=== PATIENT | female | born 2000 | race American Indian/Alaskan Native ===

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

== ENCOUNTER 2018-01-06 19:54 | Outpatient (CLI) | payer OTHER ==
[2018-01-06 23:43] VITALS: BP 122/83
== END 2018-01-06 23:12 | disposition home or self-care (01) ==
LOC: TRG 19:54
PROVIDERS: ATTEND Obstetrics & Gynecology
DX: O62.8 Other abnormalities of forces of labor (principal); Z3A.40 40 weeks gestation of pregnancy
CPT/HCPCS: 59025

== ENCOUNTER 2018-01-09 06:34 | Inpatient (IN) | payer OTHER ==
[2018-01-09] MEDS ORDERED: LACTATED RINGERS 1,000 ML ONE (07:13)
[2018-01-09 07:59] LABS: Hematocrit 33.1 % (30.3-42.9); Hemoglobin 10.6 gm/dl (10.1-14.3); Mean Corpuscular HGB Conc 32 % (30-34); Mean Corpuscular Volume 77 fl (79-97); Platelet Count 216 K/mm3 (140-440); Red Blood Count 4.32 M/mm3 (3.65-5.03); Red Cell Distribution Width 14.1 % (13.2-15.2)
[2018-01-09] MEDS ORDERED: XYLOCAINE 2% INFILTRATI NR (08:00)
[2018-01-09] MEDS ORDERED: LACTATED RINGERS 1,000 ML IV SCH (08:00)
[2018-01-09] MEDS: LACTATED RINGERS 1,000 ML IV SCH ×2 (08:00→09:19)
[2018-01-09] MEDS ORDERED: LACTATED RINGERS 1,000 ML IV ONE (08:00)
[2018-01-09] MEDS ORDERED: BRETHINE IVP PRN (08:00)
[2018-01-09] MEDS ORDERED: PITOCin/NS 20 UNIT/1000ML DRIP 20 UNITS/1,000 ML BAG IV SCH (08:00)
[2018-01-09] MEDS ORDERED: PITOCin/NS 30 UNIT/500ML 30 UNITS/500 ML BAG IV SCH (08:00)
[2018-01-09] MEDS ORDERED: SUBLIMAZE IV PRN (08:00)
[2018-01-09] MEDS ORDERED: POLYCILLIN/NS 2 GM/100 ML 2 GM/100 ML BAG IV NR (08:00)
[2018-01-09 08:07] LABS: Mean Corpuscular Hemoglobin 25 pg (28-32)
--- NOTE | 2018-01-09 08:24 | Anesthesia Consultation ---
Anesthesia Consult and Med Hx Date of service: 01/09/18 - Airway Anesthetic Teeth Evaluation: Good ROM Head & Neck: Adequate Mental/Hyoid Distance: Adequate Mallampati Class: Class II Intubation Access Assessment: Probably Good - Pre-Operative Health Status ASA Pre-Surgery Classification: ASA2 Proposed Anesthetic Plan: Epidural, Spinal - Pulmonary Hx Asthma: No COPD: No Hx Pneumonia: No - Cardiovascular System Hx Hypertension: No - Central Nervous System Hx Seizures: No Hx Psychiatric Problems: No - Endocrine Hx Renal Disease: No Hx End Stage Renal Disease: No Hx Hypothyroidism: No Hx Hyperthyroidism: No - Hematic Hx Anemia: No Hx Sickle Cell Disease: No - Other Systems Hx Alcohol Use: No
[2018-01-09] MEDS ORDERED: MINERAL OIL PO PRN (08:30)
[2018-01-09] MEDS ORDERED: BRETHINE SUB-Q PRN (08:30)
[2018-01-09] MEDS ORDERED: fentaNYL-BUPIV 2 MCG/ML-0.125% 200 MCG/100 ML BAG EPIDURAL SCH (09:00)
[2018-01-09] MEDS ORDERED: NARCAN 2 MG/2 ML IV PRN (09:00)
[2018-01-09] MEDS ORDERED: ZOFRAN IV PRN ×2 (10:25→13:47)
--- NOTE | 2018-01-09 11:05 | History and Physical Report ---
History of Present Illness Date of examination: 01/09/18 Date of admission: 01/09/18 08:08 Chief complaint: contractions History of present illness: Pt is a 17 year old -[place] female MIKE 01/02/18 at 41w0d who presents with regular contractions. She was found to be 4 cm dilated. She denies vaginal bleeding or leakage of fluid. She has had care at [facility] since 14 wks that has been uncomplicated. She is GBS positive. Past History Past Medical History: no pertinent history Past Surgical History: no surgical history Social history: no significant social history - Obstetrical History Expected Date of Delivery: 01/02/18 Actual Gestation: 41 Week(s) 0 Day(s) : 2 Para: 0 Medications and Allergies Allergies Allergy/AdvReac Type Severity Reaction Status Date / Time No Known Allergies Allergy Unverified 09/09/17 13:31 Home Medications Medication Instructions Recorded Confirmed Last Taken Type Ferrous Sulfate [Feosol 325 MG tab] 1 tab PO BID 01/09/18 01/09/18 1 Month Ago History ~12/09/17 Pnv,Calcium 72/Iron/Folic Acid 1 tab PO QDAY 01/09/18 01/09/18 1 Month Ago History [Pnv Plus Multivit Tab] ~12/09/17 Active Meds: Active Medications Ephedrine Sulfate (Ephedrine Sulfate) 10 mg IV Q2M PRN PRN Reason: Hypotension Fentanyl (Sublimaze) 100 mcg IV Q2H PRN PRN Reason: Labor Pain Ampicillin Sodium (Ampicillin/Ns 1 Gm/50 Ml) 1 gm in 50 mls @ 100 mls/hr IV Q4H [facility]; Protocol Lactated Ringer's (Lactated Ringers) 1,000 mls @ 125 mls/hr IV DIRECT [facility]ENCE Last Admin: 01/09/18 09:19 Dose: 125 mls/hr Oxytocin/Sodium Chloride (Pitocin/Ns 20 Unit/1000ml Drip) 20 units in 1,000 mls @ 125 mls/hr IV DIRECT [facility] Oxytocin/Sodium Chloride (Pitocin/Ns 30 Unit/500ml) 30 units in 500 mls @ 4 mls /hr IV TITR [facility]ENCE; Protocol Last Titration: 01/09/18 10:15 Dose: 8 ml/hr, 8 mls/hr Fentanyl/Bupivacaine/Sodium Chlor (Fentanyl-Bupiv 2 Mcg/Ml-0.125%) 200 mcg in 100 mls @ 12 mls/hr EPIDURAL TITR [facility]ENCE; Protocol Last Admin: 01/09/18 09:23 Dose: 12 mls/hr Lidocaine (Xylocaine 2%) 20 ml INFILTRATI ONCE NR Stop: 01/10/18 07:59 Mineral Oil (Mineral Oil) 30 ml PO QHS PRN PRN Reason: Constipation Naloxone HCl (Narcan 2 Mg/2 Ml) 0.2 mg IV Q5M PRN PRN Reason: Respiratory sedation Ondansetron HCl (Zofran) 4 mg IV Q8H PRN PRN Reason: Nausea And Vomiting Terbutaline Sulfate (Brethine) 0.25 mg SUB-Q ONCE PRN PRN Reason: Hyperstimulation/Hypertonicity Terbutaline Sulfate (Brethine) 0.25 mg IVP ONCE PRN PRN Reason: Hyperstimulation/Hypertonicity Review of Systems All systems: negative - Vital Signs Vital signs: Vital Signs Pulse Pulse Ox 90 100 01/09/18 06:54 01/09/18 06:54 Temp Pulse Resp BP Pulse Ox 98.2 F 93 H 18 106/59 99 01/09/18 08:01 01/09/18 11:05 01/09/18 08:01 01/09/18 10:59 01/09/18 11:05 - Physical Exam Breasts: Positive: deferred Cardiovascular: Regular rate Lungs: Positive: Clear to auscultation Abdomen: Positive: soft (gravid ) Uterus: Positive: enlarged (gravid ) Extremities: Positive: normal - Obstetrical FHR: category 2 Uterine Contraction Monitor Mode: External Cervical Dilatation: 9 Cervical Effacement Percentage: 100 station: -1 Uterine Contraction Pattern: Regular Uterine Tone Measurement Phase: Resting Uterine Contraction Intensity: Moderate Results Result Diagrams: 01/09/18 07:23 Abnormal lab results 01/09/18 Range/Units 07:23 WBC 14.8 H (4.5-11.0) K/mm3 MCV 77 L (79-97) fl MCH 25 L (28-32) pg All other labs normal. Assessment and Plan A: IUP at 41w0d Active labor GBS positive P: Admit to labor and delivery GBS prophylaxis AROM- Thick meconium Routine intrapartum care
[2018-01-09] MEDS ORDERED: AMPICILLIN/NS 1 GM/50 ML 1 GM/50 ML BAG IV SCH (13:00)
--- NOTE | 2018-01-09 13:43 | Procedure Note ---
OB Delivery Note - Delivery Date of Delivery: 01/09/18 (7-0 @ 1321) Surgeon: BRIEN LYNCH Estimated blood loss: 200cc - Vaginal Delivery presentation: vertex Delivery position: OA Intrapartum events: none Delivery induction: none Delivery augmentation: rupture of membranes Delivery monitor: external FHT, external uterine Route of delivery: Delivery placenta: spontaneous (1321) Delivery cord: 3 umbilical vessels Episiotomy: none Delivery laceration: none Anesthesia: epidural - A at 1 minute: 8 at 5 minutes: 9 Infant Gender: Male ( viable male. NICU at . To warmer. Spont. cry. Spont placenta. Pitocin infusing. FF 2 below, U, ML. Small lochia. No lacerations.)
[2018-01-09] MEDS ORDERED: PHENERGAN PO PRN (13:47)
[2018-01-09] MEDS ORDERED: DULCOLAX PR PRN (13:47)
[2018-01-09] MEDS ORDERED: TUCKS PAD TP PRN (13:47)
[2018-01-09] MEDS ORDERED: MILK OF MAGNESIA PO PRN (13:47)
[2018-01-09] MEDS ORDERED: NORCO 5/325 PO PRN (13:47)
[2018-01-09] MEDS ORDERED: BENADRYL PO PRN (13:47)
[2018-01-09] MEDS ORDERED: PHENERGAN PR PRN (13:47)
[2018-01-09] MEDS ORDERED: TYLENOL PO PRN (13:47)
[2018-01-09] MEDS ORDERED: LANSINOH TP PRN (13:47)
[2018-01-09] MEDS ORDERED: SODIUM CHLORIDE FLUSH SYRINGE 10 ML IV NR (14:00)
[2018-01-09] MEDS: MOTRIN PO SCH ×2 (14:53→22:00)
[2018-01-10 02:19] LABS: Hematocrit 30.9 % (30.3-42.9); Hemoglobin 9.9 gm/dl (10.1-14.3)
--- NOTE | 2018-01-10 08:55 | Progress Note ---
Assessment and Plan O: VSS AF PP H/H: 9.9/30.9 A: Stable PP Day 1 Anemia P: Iron BID D/C home Subjective - Subjective Date of service: 01/10/18 Patient reports: appetite normal, voiding normally, pain well controlled, ambulating normally : doing well, bottle feeding Objective - Vital Signs Latest vital signs: Vital Signs Temp Pulse Resp BP BP Pulse Ox 01/10/18 00:00 98.7 F 68 18 101/74 01/09/18 20:00 98.7 F 77 18 120/77 01/09/18 15:30 98.7 F 88 128/85 01/09/18 15:10 98.6 F 01/09/18 15:01 63 98 01/09/18 15:00 107 H 123/74 01/09/18 14:56 104 H 98 01/09/18 14:51 100 H 99 01/09/18 14:46 97 H 98 01/09/18 14:45 97 H 145/71 01/09/18 14:41 100 H 97 01/09/18 14:36 98 H 97 01/09/18 14:31 103 H 97 01/09/18 14:26 96 H 98 01/09/18 14:21 100 H 99 01/09/18 14:16 95 H 97 01/09/18 14:15 98 H 159/90 01/09/18 14:11 92 H 99 01/09/18 14:06 94 H 98 01/09/18 14:01 94 H 98 01/09/18 14:00 96 H 156/81 01/09/18 13:56 93 H 98 01/09/18 13:51 98 H 98 01/09/18 13:46 99 H 98 01/09/18 13:45 101 H 154/83 01/09/18 13:41 104 H 97 01/09/18 13:36 102 H 98 01/09/18 13:31 107 H 99 01/09/18 13:30 102 H 131/90 01/09/18 13:26 103 H 96 01/09/18 13:25 98.8 F 01/09/18 13:23 101 H 0 L 01/09/18 13:21 109 H 100 01/09/18 13:16 109 H 100 01/09/18 13:15 176 H 136/93 01/09/18 13:11 105 H 99 01/09/18 13:06 106 H 100 01/09/18 13:01 109 H 100 01/09/18 13:00 96 H 135/73 01/09/18 12:55 100 H 97 01/09/18 12:53 97 H 94 01/09/18 12:50 100 H 99 01/09/18 12:45 104 H 137/79 100 01/09/18 12:40 97 H 99 01/09/18 12:35 100 H 99 01/09/18 12:30 102 H 135/74 99 01/09/18 12:25 93 H 100 01/09/18 12:20 96 H 99 01/09/18 12:15 96 H 125/70 98 01/09/18 12:10 98 H 100 01/09/18 12:05 98 H 100 01/09/18 12:01 101 H 123/67 01/09/18 12:00 95 H 100 01/09/18 11:55 98 H 99 01/09/18 11:50 99 H 97 01/09/18 11:46 99 H 87 01/09/18 11:45 94 H 133/79 97 01/09/18 11:41 106 H 76 L 01/09/18 11:40 106 H 94 01/09/18 11:36 107 H 88 01/09/18 11:35 109 H 92 01/09/18 11:30 105 H 127/71 97 01/09/18 11:25 101 H 98 01/09/18 11:20 109 H 100 01/09/18 11:17 106 H 91 01/09/18 11:15 110 H 99 01/09/18 11:12 107 H 84 01/09/18 11:10 106 H 98 01/09/18 11:05 93 H 99 01/09/18 11:04 101 H 92 01/09/18 10:59 96 H 106/59 100 01/09/18 10:54 93 H 100 01/09/18 10:49 96 H 100 01/09/18 10:45 93 H 109/63 01/09/18 10:44 91 H 100 01/09/18 10:39 96 H 98 01/09/18 10:34 97 H 98 01/09/18 10:29 94 H 109/64 98 01/09/18 10:24 95 H 99 01/09/18 10:19 94 H 98 01/09/18 10:15 95 H 117/67 01/09/18 10:14 89 98 01/09/18 10:09 95 H 99 01/09/18 10:04 95 H 99 01/09/18 10:00 96 H 122/73 86 01/09/18 09:59 67 97 01/09/18 09:52 96 H 97 01/09/18 09:51 89 01/09/18 09:47 99 H 118/64 90 01/09/18 09:44 91 H 82 L 01/09/18 09:42 94 H 100 01/09/18 09:37 95 H 98 01/09/18 09:31 95 H 98 01/09/18 09:30 89 130/79 01/09/18 09:26 88 98 01/09/18 09:21 91 H 99 01/09/18 09:16 89 99 01/09/18 09:14 134/87 01/09/18 09:12 93 H 136/75 01/09/18 09:11 92 H 100 01/09/18 09:10 90 136/74 01/09/18 09:08 91 H 136/70 01/09/18 09:06 93 H 136/78 87 Intake and Output 01/09/18 01/10/18 01/10/18 22:59 06:59 14:59 Intake Total 660 Balance 660 Intake: Oral 240 Intake, Free Water 420 Other: Total, Intake Amount 240 # Voids Void 1 Estimated Blood Loss 200 - Exam Breasts: Present: deferred Abdomen: Present: normal appearance, soft. Absent: distention, tenderness Uterus: Present: normal, firm. Absent: bogginess, tenderness, fundal height below umbilicus Extremities: Present: normal - Labs Labs: Abnormal lab results 01/10/18 Range/Units 01:37 Hgb 9.9 L (10.1-14.3) gm/dl
--- NOTE | 2018-01-10 08:58 | Discharge Summary ---
Providers - Providers Date of Admission: 01/09/18 08:08 Date of discharge: 01/10/18 Attending physician: CLAUDIA YOUNG MD Primary care physician: CLAUDIA YOUNG MD Hospitalization Reason for admission: active labor, IUP at term Delivery: Episiotomy: none Laceration: none Other procedures: none complications: none Discharge diagnosis: IUP at term delivered [place] baby: male Condition at discharge: Good Disposition: DC-01 TO HOME OR SELFCARE Plan - Discharge Medications Prescriptions: Ferrous Sulfate [Feosol 325 MG tab] 1 tab PO BID #60 tablet Ibuprofen [Ibu] 800 mg PO 8XD PRN #30 tablet PRN Reason: pain - Provider Discharge Summary Activity: routine, no sex for 6 weeks, no heavy lifting 4 weeks, no strenuous exercise Diet: routine Instructions: routine Additional instructions: [] Smoking cessation referral if applicable(refer to patient education folder for contact #) [] Refer to [facility] Booklet Call your doctor immediately for: * Fever > 100.5 * Heavy vaginal bleeding ( >1 pad per hour) * Severe persistent headache * Shortness of breath * Reddened, hot, painful area to leg or breast * Drainage or odor from incision. * Keep incision clean and dry at all times and follow doctor's instructions regarding bathing/showering - Follow up plan Follow up: CLAUDIA YOUNG MD [Primary Care Provider] - (RTO 4 weeks . Call office to schedule circumcision)
[2018-01-10] MEDS: MOTRIN PO SCH ×3 (10:10→22:00)
[2018-01-10] MEDS: PRENATAL VITAMIN PO SCH (10:11)
[2018-01-11] MEDS: PRENATAL VITAMIN PO SCH (09:23)
[2018-01-11 16:30] VITALS: BP 124/86
[2018-01-11] MEDS: MOTRIN PO SCH (20:25)
== END 2018-01-11 16:35 | disposition home or self-care (01) | DRG 775 ==
LOC: TRG 06:34 → EEVIPCON 08:08 → LD 08:08 → OB 15:44
PROVIDERS: ADMIT Obstetrics & Gynecology; ATTEND Obstetrics & Gynecology
PROC: 10E0XZZ Delivery of Products of Conception, External Approach (ICD-10-PCS; principal; 2018-01-09)
PROC: 3E0R3BZ Introduction of Anesthetic Agent into Spinal Canal, Percutaneous Approach (ICD-10-PCS; 2018-01-09)
PROC: 00HU33Z Insertion of Infusion Device into Spinal Canal, Percutaneous Approach (ICD-10-PCS; 2018-01-09)
PROC: 10907ZC Drainage of Amniotic Fluid, Therapeutic from Products of Conception, Via Natural or Artificial Opening (ICD-10-PCS; 2018-01-09)
DX: O99.824 Streptococcus B carrier state complicating childbirth (principal); D64.9 Anemia, unspecified; O77.0 Labor and delivery complicated by meconium in amniotic fluid; Z3A.41 41 weeks gestation of pregnancy; Z37.0 Single live birth; Z79.899 Other long term (current) drug therapy; O99.02 Anemia complicating childbirth
CPT/HCPCS: 36415; 85014; 85018; 85027; 86592; 86850; 86900; 86901; 99211; A6250; G0463; J0290; J2405; J2590; J7120

== ENCOUNTER 2020-02-01 22:54 | Emergency (ER) | payer SELFPAY ==
[2020-02-01] MEDS ORDERED: ACETAMINOPHEN 500 MG TAB PO ONE (23:21)
[2020-02-01] MEDS ORDERED: ONDANSETRON 4 MG ODT TAB PO ONE (23:21)
[2020-02-01] MEDS ORDERED: IBUPROFEN 600 MG TAB PO ONE (23:21)
[2020-02-02 00:15] LABS: Basophils # (Auto) 0.1 K/mm3 (0.0-0.1); Basophils % (Auto) 1.3 % (0.0-1.8); Eosinophils % (Auto) 0.3 % (0.0-4.3); Hematocrit 40.1 % (30.3-42.9); Lymphocytes % (Auto) 26.5 % (13.4-35.0); Mean Corpuscular HGB Conc 32 % (30-34); Mean Corpuscular Volume 78 fl (79-97); Platelet Count 293 K/mm3 (140-440); Red Blood Count 5.12 M/mm3 (3.65-5.03); Red Cell Distribution Width 14.5 % (13.2-15.2)
--- NOTE | 2020-02-02 00:16 | Emergency Department Report ---
ED Abdominal Pain HPI - General Chief Complaint: Abdominal Pain Stated Complaint: BACK,ABD AND LEG PAIN Source: patient Mode of arrival: Ambulatory Limitations: No Limitations - History of Present Illness Initial Comments: Patient is a A0 19 yo AA female with no past medical history who presents to the ED with c/o persistent diffuse lower abdominal pain, nausea, dysuria, ur inary urgency and frequency, low back pain and lightheadedness intermittently for the last 3 months, worse in the last 2 days. Patient denies vomiting, chest pain, dizziness, fever, chills, vaginal bleeding, vaginal discharge, diarrhea, heavy lifting or fall, traumatic injury, numbness and tingling of lower extremities bilaterally, chest pain and dyspnea or headache. MD Complaint: abdominal pain (diffuse lower abdomen; nausea; lightheadedness), other (lower back pain; dysuria; urinary urgency and frequency) -: Gradual, month(s) (3) Location: suprapubic Radiation: suprapubic, back (lower) Migration to: no migration Severity: severe Severity scale (0 -10): 9 Quality: aching, sharp Consistency: constant Improves With: nothing Worsens With: movement Associated Symptoms: denies other symptoms, nausea, dysuria, anorexia. denies: vomiting, diarrhea, fever, chills, constipation, hematemesis, hematochezia, melena, syncope, other - Related Data LMP Date: 01/21/20 Home Medications Medication Instructions Recorded Confirmed Last Taken Pnv,Calcium 72/Iron/Folic Acid 1 tab PO QDAY 01/09/18 01/09/18 1 Month Ago [Pnv Plus Multivit Tab] ~12/09/17 Previous Rx's Medication Instructions Recorded Last Taken Type Ferrous Sulfate [Feosol 325 MG tab] 1 tab PO BID #60 tablet 01/10/18 Unknown Rx Ibuprofen [Ibu] 800 mg PO 8XD PRN #30 tablet 01/10/18 Unknown Rx Ketorolac [Toradol] 10 mg PO Q8H PRN #20 tablet 02/02/20 Unknown Rx Ondansetron [Zofran Odt] 4 mg PO Q6HR PRN #15 tab.rapdis 02/02/20 Unknown Rx tiZANidine [Zanaflex 4mg TAB] 4 mg PO Q8H PRN #15 tablet 02/02/20 Unknown Rx traMADoL [Ultram] 50 mg PO Q6HR PRN #12 tablet 02/02/20 Unknown Rx Allergies Allergy/AdvReac Type Severity Reaction Status Date / Time No Known Allergies Allergy Unverified 09/09/17 13:31 ED Review of Systems ROS: Stated complaint: BACK,ABD AND LEG PAIN Other details as noted in HPI Constitutional: denies: chills, fever Eyes: denies: eye pain, eye discharge, vision change ENT: denies: ear pain, throat pain Respiratory: denies: cough, shortness of breath, wheezing Cardiovascular: denies: chest pain, palpitations Endocrine: no symptoms reported Gastrointestinal: abdominal pain (diffuse lower abdomen), nausea. denies: diarrhea Genitourinary: urgency, dysuria, frequency. denies: hematuria, discharge, abnormal menses, dyspareunia Musculoskeletal: back pain (lower back pain), myalgia. denies: joint swelling, arthralgia Skin: denies: rash, lesions Neurological: denies: headache, weakness, paresthesias Psychiatric: denies: anxiety, depression Hematological/Lymphatic: denies: easy bleeding, easy bruising ED Past Medical Hx - Past Medical History Previous Medical History?: No Hx Hypertension: No Hx Congestive Heart Failure: No Hx Diabetes: No Hx Deep Vein Thrombosis: No Hx Renal Disease: No Hx Sickle Cell Disease: No Hx Seizures: No Hx Asthma: No Hx COPD: No Hx HIV: No - Surgical History Past Surgical History?: No - Social History Smoking Status: Current Every Day Smoker Substance Use Type: Marijuana - Medications Home Medications: Home Medications Medication Instructions Recorded Confirmed Last Taken Type Pnv,Calcium 72/Iron/Folic Acid 1 tab PO QDAY 01/09/18 01/09/18 1 Month Ago History [Pnv Plus Multivit Tab] ~12/09/17 Ferrous Sulfate [Feosol 325 MG tab] 1 tab PO BID #60 tablet 01/10/18 Unknown Rx Ibuprofen [Ibu] 800 mg PO 8XD PRN #30 tablet 01/10/18 Unknown Rx Ketorolac [Toradol] 10 mg PO Q8H PRN #20 tablet 02/02/20 Unknown Rx Ondansetron [Zofran Odt] 4 mg PO Q6HR PRN #15 tab.rapdis 02/02/20 Unknown Rx tiZANidine [Zanaflex 4mg TAB] 4 mg PO Q8H PRN #15 tablet 02/02/20 Unknown Rx traMADoL [Ultram] 50 mg PO Q6HR PRN #12 tablet 02/02/20 Unknown Rx ED Physical Exam - General Limitations: No Limitations General appearance: alert, in no apparent distress - Head Head exam: Present: atraumatic, normocephalic, normal inspection - Eye Eye exam: Present: normal appearance, PERRL, EOMI Pupils: Present: normal accommodation - ENT ENT exam: Present: normal exam, normal orophraynx, mucous membranes moist, TM's normal bilaterally, normal external ear exam - Neck Neck exam: Present: normal inspection, full ROM - Respiratory Respiratory exam: Present: normal lung sounds bilaterally. Absent: respiratory distress, wheezes, rhonchi, chest wall tenderness, accessory muscle use, decreased breath sounds - Cardiovascular Cardiovascular Exam: Present: regular rate, normal rhythm, normal heart sounds. Absent: systolic murmur, diastolic murmur, rubs, gallop - GI/Abdominal GI/Abdominal exam: Present: soft, tenderness (Palpable mild suprapubic tenderness), normal bowel sounds. Absent: guarding, rebound, hyperactive bowel sounds, hypoactive bowel sounds - Extremities Exam Extremities exam: Present: normal inspection, full ROM, normal capillary refill - Back Exam Back exam: Present: normal inspection, full ROM, tenderness (Palpable lumbosacral paraspinal musculoskeletal tenderness), muscle spasm, paraspinal tenderness. Absent: CVA tenderness (R), vertebral tenderness - Neurological Exam Neurological exam: Present: alert, oriented X3, CN II-XII intact, normal gait, reflexes normal - Psychiatric Psychiatric exam: Present: normal affect, normal mood, anxious - Skin Skin exam: Present: warm, dry, intact, normal color. Absent: rash ED Course Vital Signs 02/01/20 23:06 Temperature 98.4 F Pulse Rate 84 Respiratory 20 Rate Blood Pressure 144/84 O2 Sat by Pulse 100 Oximetry ED Medical Decision Making - Lab Data Result diagrams: 02/02/20 Unknown 02/02/20 03:49 - Radiology Data Radiology results: report reviewed, image reviewed Findings [facility] [address] [place] [address] Cat Scan Report Signed Patient: JIA YOUNG MR #: [id number] : 2000 Acct:[id number] Age/Sex: 19 / F ADM Date: 02/01/20 Loc: ED Attending Dr: Ordering Physician: TODD ALVAREZ Date of Service: 02/02/20 Procedure(s): CT abdomen pelvis w con Accession Number(s): [id number] cc: TODD ALVAREZ CT ABDOMEN AND PELVIS WITH CONTRAST INDICATION / CLINICAL INFORMATION: abdominal pain. TECHNIQUE: Axial CT images were obtained through the abdomen and pelvis after 100 cc Omnipaque 300 milligrams percent IV contrast. All CT scans at this location are performed using CT dose reduction for ALARA by means of automated exposure control. COMPARISON: None available. FINDINGS: LOWER CHEST: No significant abnormality. LIVER: No significant abnormality. GALLBLADDER: No significant abnormality. BILE DUCTS: No significant abnormality. PANCREAS: No significant abnormality. SPLEEN: No significant abnormality. ADRENALS: No significant abnormality. RIGHT KIDNEY and URETER: No significant abnormality. LEFT KIDNEY and URETER: No significant abnormality. STOMACH and SMALL BOWEL: No significant abnormality. COLON: No significant abnormality. APPENDIX: No significant abnormality. PERITONEUM: No free fluid. No free air. No fluid collection. LYMPH NODES: No significant adenopathy. AORTA and ARTERIES: No significant abnormality. IVC and VEINS: No significant abnormality. URINARY BLADDER: No significant abnormality. REPRODUCTIVE ORGANS: 5.67 x 5.56 cm complex fat-containing lesion with focal calcification extending over distance of 5.91 cm right adnexa consistent with a dermoid. ADDITIONAL FINDINGS: None. SKELETAL SYSTEM: No significant abnormality. IMPRESSION: 1. Dermoid right adnexa as noted Signer Name: Ramírez Mortensen MD Signed: 02/02/2020 5:10 AM Workstation Name: [id number] Transcribed By: WG Dictated By: Ramírez Mortensen MD Electronically Authenticated By: Ramírez Mortensen MD Signed Date/Time: 02/02/20 0510 DD/ [id number] TD/TT: - Medical Decision Making This is a A0 19 yo AA female with no past medical history who presents to the ED with c/o persistent diffuse lower abdominal pain, nausea, dysuria, urinary urgency and frequency, low back pain and lightheadedness intermittently for the last 3 months, worse in the last 2 days. In the ED, patient is alert and oriented x3 and is not in any distress but appears to be in pain. Patient was treated for pain in the ED and also received normal saline 1 L IV bolus x2. Lab test results were reviewed and showed mild acute leukocytosis of 11,200, hyponatremia of 129 mmol/L and the there is a lab test results were unremarkable. The initial test had shown that there was hemolysis of the blood for chemistry analysis which therefore showed that there was hyperkalemia as a result of hemolysis. Repeat BMP after 2 L of normal saline IV fluids revealed a normal potassium level. Abdomen pelvis CT scan with contrast showed a 5.67 x 5.56 cm complex fat-containing lesion with focal calcification extending over distance of 5.91 cm right adnexa consistent with a dermoid. On reevaluation, patient's pain is well controlled medications. Patient was discharged home on pain medications and advised follow-up with her [employer] physician in 5 to 7 days for reevaluation or return to the ED immediately if symptoms get worse. - Differential Diagnosis Ovarian cyst; Kidney stone; PID; ; Appendicitis Critical care attestation.: If time is entered above; I have spent that time in minutes in the direct care of this critically ill patient, excluding procedure time. ED Disposition Clinical Impression: Spasm of muscle of lower back, Dermoid cyst of right ovary Abdominal pain Qualifiers: Abdominal location: lower abdomen, unspecified Qualified Code(s): R10.30 - Lower abdominal pain, unspecified Disposition: DC-01 TO HOME OR SELFCARE Is pt being admited?: No Does the pt Need Aspirin: No Condition: Stable Instructions: Abdominal Pain (ED), Muscle Spasm (ED), Ovarian Cyst (ED) Additional Instructions: All lab test results are unremarkable but the abdomen pelvis CT scan with contrast shows a dermoid cyst in the right adnexa. Therefore take pain medications as needed and follow-up with your [employer] physician in 5 to 7 days for reevaluation or return to the ED immediately if symptoms get worse. Prescriptions: Ketorolac [Toradol] 10 mg PO Q8H PRN #20 tablet PRN Reason: Pain traMADoL [Ultram] 50 mg PO Q6HR PRN #12 tablet PRN Reason: Pain tiZANidine [Zanaflex 4mg TAB] 4 mg PO Q8H PRN #15 tablet PRN Reason: Muscle Spasm Ondansetron [Zofran Odt] 4 mg PO Q6HR PRN #15 tab.rapdis PRN Reason: Nausea Referrals: [facility] [place] [Provider Group] - 7-10 days JANNETTE BRYAN MD [Staff Physician] - 3-5 Days Time of Disposition: 05:24 Print Language: JORDANIAN
[2020-02-02 00:26] LABS: Albumin 4.4 g/dL (3.9-5); BUN/Creatinine Ratio 9; Blood Urea Nitrogen 8 mg/dL (7-17); Hemolysis Index 1101
[2020-02-02 00:38] LABS: Bilirubin,Urine NEG (Negative); Blood,Urine NEG (Negative); Color,Urine Straw (Yellow); Mucus,Urine FEW /HPF; Protein,Urine <15 mg/dL mg/dL (Negative); Urobilinogen,Urine < 2.0 mg/dL (<2.0)
[2020-02-02] MEDS ORDERED: SODIUM CHLORIDE 0.9% 1000 ML 1,000 ML IV ONE ×2 (00:43→02:25)
[2020-02-02 00:44] LABS: HCG Qualitative,Urine Negative (Negative)
[2020-02-02 00:45] LABS: Alanine Aminotransferase < 5 units/L (7-56)
[2020-02-02 01:51] LABS: Alanine Aminotransferase 9 units/L (7-56); Albumin 4.3 g/dL (3.9-5); Blood Urea Nitrogen 8 mg/dL (7-17); Calcium 9.4 mg/dL (8.4-10.2); Hemolysis Index 295
[2020-02-02 02:03] LABS: BUN/Creatinine Ratio 11
[2020-02-02] MEDS ORDERED: ONDANSETRON 4 MG/2 ML INJ IV ONE (04:18)
[2020-02-02] MEDS ORDERED: MORPHINE 4 MG/1 ML INJ IV ONE (04:18)
[2020-02-02 04:27] LABS: BUN/Creatinine Ratio 10; Blood Urea Nitrogen 8 mg/dL (7-17); Calcium 9.2 mg/dL (8.4-10.2); Hemolysis Index 2
--- NOTE | 2020-02-02 05:14 | Cat Scan Report ---
CT ABDOMEN AND PELVIS WITH CONTRAST INDICATION / CLINICAL INFORMATION: abdominal pain. TECHNIQUE: Axial CT images were obtained through the abdomen and pelvis after 100 cc Omnipaque 300 milligrams pe rcent IV contrast. All CT scans at this location are performed using CT dose reduction for ALARA by means of automated exposure control. COMPARISON: None available. FINDINGS: LOWER CHEST: No significant abnormality. LIVER: No significant abnormality. GALLBLADDER: No significant abnormality. BILE DUCTS: No significant abnormality. PANCREAS: No significant abnormality. SPLEEN: No significant abnormality. ADRENALS: No significant abnormality. RIGHT KIDNEY and URETER: No significant abnormality. LEFT KIDNEY and URETER: No significant abnormality. STOMACH and SMALL BOWEL: No significant abnormality. COLON: No significant abnormality. APPENDIX: No significant abnormality. PERITONEUM: No free fluid. No free air. No fluid collection. LYMPH NODES: No significant adenopathy. AORTA and ARTERIES: No significant abnormality. IVC and VEINS: No significant abnormality. URINARY BLADDER: No significant abnormality. REPRODUCTIVE ORGANS: 5.67 x 5.56 cm complex fat-containing lesion with focal calcification extending over distance of 5.91 cm right adnexa consistent with a dermoid. ADDITIONAL FINDINGS: None. SKELETAL SYSTEM: No significant abnormality. IMPRESSION: 1. Dermoid right adnexa as noted Signer Name: Ramírez Mortensen MD Signed: 02/02/2020 5:10 AM Workstation Name: [id number]
[2020-02-02 06:21] VITALS: BP 133/82
== END 2020-02-02 05:56 | disposition home or self-care (01) ==
LOC: ED 22:54
DX: D27.0 Benign neoplasm of right ovary (principal); M62.830 Muscle spasm of back
CPT/HCPCS: 36415; 74177; 80048; 80053; 81001; 81025; 83690; 85025; 96361; 96374; 96375; 99284; J2270; J2405; J7030; Q9967; Q0162

== ENCOUNTER 2020-05-11 11:46 | Emergency (ER) | payer SELFPAY ==
[2020-05-11 13:00] VITALS: BP 128/71
[2020-05-11] MEDS ORDERED: AZITHROMYCIN 250 MG TAB PO ONE (14:05)
[2020-05-11] MEDS ORDERED: LIDOCAINE-MPF (1%) 10 MG/1 ML VIAL 5 ML INFILTRATI ONE (14:05)
--- NOTE | 2020-05-11 14:06 | Emergency Department Report ---
ED Female HPI - General Chief complaint: Urogenital-Female Stated complaint: VAGINAL PAIN Time Seen by Provider: 05/11/20 14:04 Source: patient Mode of arrival: Ambulatory Limitations: No Limitations - History of Present Illness Initial comments: Patient is a 19-year-old female presents emergency room complaints of blisters present to the vagina that began a week ago. She has associated dysuria and watery vaginal discharge. She states that she did have unprotected intercourse. She denies ever having these symptoms in the past. She denies any fever, nausea, vomiting, diarrhea, abdominal pain, back pain, hematuria. No past medical history. No allergies medications. Last menstrual cycle 2 weeks ago. - Related Data Home Medications Medication Instructions Recorded Confirmed Last Taken Pnv,Calcium 72/Iron/Folic Acid 1 tab PO QDAY 01/09/18 01/09/18 1 Month Ago [Pnv Plus Multivit Tab] ~12/09/17 Previous Rx's Medication Instructions Recorded Last Taken Type Ferrous Sulfate [Feosol 325 MG tab] 1 tab PO BID #60 tablet 01/10/18 Unknown Rx Ibuprofen [Ibu] 800 mg PO 8XD PRN #30 tablet 01/10/18 Unknown Rx Ketorolac [Toradol] 10 mg PO Q8H PRN #20 tablet 02/02/20 Unknown Rx Ondansetron [Zofran Odt] 4 mg PO Q6HR PRN #15 tab.rapdis 02/02/20 Unknown Rx tiZANidine [Zanaflex 4mg TAB] 4 mg PO Q8H PRN #15 tablet 02/02/20 Unknown Rx traMADoL [Ultram] 50 mg PO Q6HR PRN #12 tablet 02/02/20 Unknown Rx Acyclovir [Zovirax Tab] 400 mg PO TID 7 Days #21 tab 05/11/20 Unknown Rx Fluconazole (Nf) [Diflucan TAB] 150 mg PO ONCE #1 tablet 05/11/20 Unknown Rx cephALEXin [Keflex] 500 mg PO BID 7 Days #14 cap 05/11/20 Unknown Rx metroNIDAZOLE [Flagyl] 500 mg PO BID 7 Days #14 tab 05/11/20 Unknown Rx Allergies Allergy/AdvReac Type Severity Reaction Status Date / Time No Known Allergies Allergy Unverified 09/09/17 13:31 ED Review of Systems ROS: Stated complaint: VAGINAL PAIN Other details as noted in HPI Comment: All other systems reviewed and negative ED Past Medical Hx - Past Medical History Previous Medical History?: No Hx Hypertension: No Hx Congestive Heart Failure: No Hx Diabetes: No Hx Deep Vein Thrombosis: No Hx Renal Disease: No Hx Sickle Cell Disease: No Hx Seizures: No Hx Asthma: No Hx COPD: No Hx HIV: No - Surgical History Past Surgical History?: No - Social History Smoking Status: Current Every Day Smoker Substance Use Type: Marijuana - Medications Home Medications: Home Medications Medication Instructions Recorded Confirmed Last Taken Type Pnv,Calcium 72/Iron/Folic Acid 1 tab PO QDAY 01/09/18 01/09/18 1 Month Ago History [Pnv Plus Multivit Tab] ~12/09/17 Ferrous Sulfate [Feosol 325 MG tab] 1 tab PO BID #60 tablet 01/10/18 Unknown Rx Ibuprofen [Ibu] 800 mg PO 8XD PRN #30 tablet 01/10/18 Unknown Rx Ketorolac [Toradol] 10 mg PO Q8H PRN #20 tablet 02/02/20 Unknown Rx Ondansetron [Zofran Odt] 4 mg PO Q6HR PRN #15 tab.rapdis 02/02/20 Unknown Rx tiZANidine [Zanaflex 4mg TAB] 4 mg PO Q8H PRN #15 tablet 02/02/20 Unknown Rx traMADoL [Ultram] 50 mg PO Q6HR PRN #12 tablet 02/02/20 Unknown Rx Acyclovir [Zovirax Tab] 400 mg PO TID 7 Days #21 tab 05/11/20 Unknown Rx Fluconazole (Nf) [Diflucan TAB] 150 mg PO ONCE #1 tablet 05/11/20 Unknown Rx cephALEXin [Keflex] 500 mg PO BID 7 Days #14 cap 05/11/20 Unknown Rx metroNIDAZOLE [Flagyl] 500 mg PO BID 7 Days #14 tab 05/11/20 Unknown Rx ED Physical Exam - General Limitations: No Limitations General appearance: alert, in no apparent distress - Head Head exam: Present: atraumatic, normocephalic - Eye Eye exam: Present: normal appearance - ENT ENT exam: Present: mucous membranes moist - Respiratory Respiratory exam: Absent: respiratory distress, accessory muscle use - GI/Abdominal GI/Abdominal exam: Present: soft, normal bowel sounds. Absent: distended, tenderness, guarding, rebound, rigid - External exam: Present: lesions (blisters and shallow ulcers present to the labia), other (merchandise manager: MARTIN maher) Speculum exam: Present: other (pt deferred speculum exam) - Neurological Exam Neurological exam: Present: alert, oriented X3 - Psychiatric Psychiatric exam: Present: normal affect, normal mood - Skin Skin exam: Present: warm, dry, intact ED Course Vital Signs 05/11/20 12:57 Temperature 98.9 F Pulse Rate 102 H Respiratory 16 Rate Blood Pressure 128/71 [Right] O2 Sat by Pulse 98 Oximetry ED Medical Decision Making - Medical Decision Making Patient is a 19-year-old female presents emergency room complaints of blisters present to the vagina that began a week ago. She has associated dysuria and watery vaginal discharge. She states that she did have unprotected intercourse. She denies ever having these symptoms in the past. She denies any fever, nausea, vomiting, diarrhea, abdominal pain, back pain, hematuria. No past medical history. No allergies medications. Last menstrual cycle 2 weeks ago. VSS. on exam: No abdominal tenderness on exam, no guarding, no rebound, no rigidity, normal bowel sounds, blisters and shallow ulcers present to the labia, merchandise manager: nika. Examination is concerning for genital herpes. Urine is negative. UA shows evidence of mild UTI. G/C sent. Patient given ceftriaxone and azithromycin while in the ED. patient treated for vaginitis with prescription for Flagyl and fluconazole. Patient also placed on acyclovir for potential herpes outbreak. Patient given prescription for Keflex for UTI. Discussed the importance with patient to follow-up with the clinic or the health department to have a full STD panel. advised pt Please take medication as prescribed. Please follow-up with the [facility], health department, or clinic in order to have a full STD panel. Please have any partner tested and treated as well. Please do not have sexual intercourse as this can be contagious. Return to emergency room for any new or worsening symptoms. Critical care attestation.: If time is entered above; I have spent that time in minutes in the direct care of this critically ill patient, excluding procedure time. ED Disposition Clinical Impression: Vaginal lesion, Concern about STD in female without diagnosis UTI (urinary tract infection) Qualifiers: Urinary tract infection type: acute cystitis Hematuria presence: without hematuria Qualified Code(s): N30.00 - Acute cystitis without hematuria Vaginitis Qualifiers: Chronicity: acute Qualified Code(s): N76.0 - Acute vaginitis Disposition: TO HOME OR SELFCARE Is pt being admited?: No Does the pt Need Aspirin: No Condition: Stable Instructions: Urinary Tract Infection, Adult, [id number], Genital Herpes, Safe Sex Additional Instructions: Please take medication as prescribed. Please follow-up with the [facility], health department, or clinic in order to have a full STD panel. Please have any partner tested and treated as well. Please do not have sexual intercourse as this can be contagious. Return to emergency room for any new or worsening symptoms. Prescriptions: Fluconazole (Nf) [Diflucan TAB] 150 mg PO ONCE #1 tablet metroNIDAZOLE [Flagyl] 500 mg PO BID 7 Days #14 tab cephALEXin [Keflex] 500 mg PO BID 7 Days #14 cap Acyclovir [Zovirax Tab] 400 mg PO TID 7 Days #21 tab Referrals: [facility] [Primary Care Provider] - 2-3 Days [facility] [Outside] - 2-3 Days [facility] [Provider Group] - 2-[address] [facility] [Provider Group] - 2-3 Days Time of Disposition: 16:21 Print Language: GEORGIAN
[2020-05-11 16:04] LABS: HCG Qualitative,Urine Negative (Negative)
[2020-05-11 16:05] LABS: Bacteria,Urine 1+ /HPF (Negative); Bilirubin,Urine NEG (Negative); Blood,Urine NEG (Negative); Color,Urine Amber (Yellow); Hyaline Casts,Urine 2 /LPF; Mucus,Urine 3+ /HPF; Urobilinogen,Urine < 2.0 mg/dL (<2.0)
== END 2020-05-11 16:48 | disposition home or self-care (01) ==
LOC: ED 11:46
DX: N39.0 Urinary tract infection, site not specified (principal); N76.0 Acute vaginitis; F17.200 Nicotine dependence, unspecified, uncomplicated; F12.90 Cannabis use, unspecified, uncomplicated; Z71.1 Person with feared health complaint in whom no diagnosis is made; Z79.899 Other long term (current) drug therapy
CPT/HCPCS: 81001; 81025; 87086; 87591; 96372; 99283; J0696

== ENCOUNTER 2020-05-30 08:58 | Emergency (ER) | payer SELFPAY ==
[2020-05-30 09:14] VITALS: BP 121/72
[2020-05-30] MEDS ORDERED: IBUPROFEN ORAL LIQD 100 MG/5 ML ORAL.LIQD PO ONE (09:28)
--- NOTE | 2020-05-30 09:36 | Emergency Department Report ---
ED General Adult HPI - General Chief complaint: Sore Throat Stated complaint: 4 DAYS CANT EAT/SWALLOW Time Seen by Provider: 05/30/20 09:19 Source: patient Mode of arrival: Ambulatory Limitations: No Limitations - History of Present Illness Initial comments: 20-year-old -[place] female patient presents with complaints of sore throat x4 days. She states pain worsens with swallowing and rates her pain as a 10/10 in severity. She denies any drooling, difficulty opening her jaw, fever/chills/sweats, chest pain, cough, shortness of breath, or rash. Patient states she has been taking OTC cold medication and it is not helping with her symptoms. - Related Data Home Medications Medication Instructions Recorded Confirmed Last Taken Pnv,Calcium 72/Iron/Folic Acid 1 tab PO QDAY 01/09/18 01/09/18 1 Month Ago [Pnv Plus Multivit Tab] ~12/09/17 Previous Rx's Medication Instructions Recorded Last Taken Type Ferrous Sulfate [Feosol 325 MG tab] 1 tab PO BID #60 tablet 01/10/18 Unknown Rx Ibuprofen [Ibu] 800 mg PO 8XD PRN #30 tablet 01/10/18 Unknown Rx Ketorolac [Toradol] 10 mg PO Q8H PRN #20 tablet 02/02/20 Unknown Rx Ondansetron [Zofran Odt] 4 mg PO Q6HR PRN #15 tab.rapdis 02/02/20 Unknown Rx tiZANidine [Zanaflex 4mg TAB] 4 mg PO Q8H PRN #15 tablet 02/02/20 Unknown Rx traMADoL [Ultram] 50 mg PO Q6HR PRN #12 tablet 02/02/20 Unknown Rx Acyclovir [Zovirax Tab] 400 mg PO TID 7 Days #21 tab 05/11/20 Unknown Rx Fluconazole (Nf) [Diflucan TAB] 150 mg PO ONCE #1 tablet 05/11/20 Unknown Rx cephALEXin [Keflex] 500 mg PO BID 7 Days #14 cap 05/11/20 Unknown Rx metroNIDAZOLE [Flagyl] 500 mg PO BID 7 Days #14 tab 05/11/20 Unknown Rx Amoxicillin [Trimox CAP] 500 mg PO BID 10 Days #20 capsule 05/30/20 Unknown Rx Ibuprofen [Motrin 800 MG tab] 800 mg PO Q8HR PRN #15 tablet 05/30/20 Unknown Rx Allergies Allergy/AdvReac Type Severity Reaction Status Date / Time No Known Allergies Allergy Unverified 09/09/17 13:31 ED Review of Systems ROS: Stated complaint: 4 DAYS CANT EAT/SWALLOW Other details as noted in HPI Constitutional: denies: chills, diaphoresis, fever, malaise, weakness ENT: ear pain, throat pain. denies: dental pain Respiratory: denies: cough, shortness of breath Cardiovascular: denies: chest pain Gastrointestinal: denies: abdominal pain, nausea Skin: denies: rash, lesions, change in color Neurological: denies: headache Hematological/Lymphatic: denies: swollen glands ED Past Medical Hx - Past Medical History Previous Medical History?: No Hx Hypertension: No Hx Congestive Heart Failure: No Hx Diabetes: No Hx Deep Vein Thrombosis: No Hx Renal Disease: No Hx Sickle Cell Disease: No Hx Seizures: No Hx Asthma: No Hx COPD: No Hx HIV: No - Social History Smoking Status: Current Every Day Smoker Substance Use Type: Marijuana - Medications Home Medications: Home Medications Medication Instructions Recorded Confirmed Last Taken Type Pnv,Calcium 72/Iron/Folic Acid 1 tab PO QDAY 01/09/18 01/09/18 1 Month Ago H istory [Pnv Plus Multivit Tab] ~12/09/17 Ferrous Sulfate [Feosol 325 MG tab] 1 tab PO BID #60 tablet 01/10/18 Unknown Rx Ibuprofen [Ibu] 800 mg PO 8XD PRN #30 tablet 01/10/18 Unknown Rx Ketorolac [Toradol] 10 mg PO Q8H PRN #20 tablet 02/02/20 Unknown Rx Ondansetron [Zofran Odt] 4 mg PO Q6HR PRN #15 tab.rapdis 02/02/20 Unknown Rx tiZANidine [Zanaflex 4mg TAB] 4 mg PO Q8H PRN #15 tablet 02/02/20 Unknown Rx traMADoL [Ultram] 50 mg PO Q6HR PRN #12 tablet 02/02/20 Unknown Rx Acyclovir [Zovirax Tab] 400 mg PO TID 7 Days #21 tab 05/11/20 Unknown Rx Fluconazole (Nf) [Diflucan TAB] 150 mg PO ONCE #1 tablet 05/11/20 Unknown Rx cephALEXin [Keflex] 500 mg PO BID 7 Days #14 cap 05/11/20 Unknown Rx metroNIDAZOLE [Flagyl] 500 mg PO BID 7 Days #14 tab 05/11/20 Unknown Rx Amoxicillin [Trimox CAP] 500 mg PO BID 10 Days #20 capsule 05/30/20 Unknown Rx Ibuprofen [Motrin 800 MG tab] 800 mg PO Q8HR PRN #15 tablet 05/30/20 Unknown Rx ED Physical Exam - General Limitations: No Limitations General appearance: alert, in no apparent distress - Head Head exam: Present: atraumatic, normocephalic - Eye Eye exam: Present: normal appearance. Absent: scleral icterus - ENT ENT exam: Present: TM's normal bilaterally - Expanded ENT Exam Expanded Mouth exam: Present: tongue normal. Absent: drooling, trismus, muffled voice Teeth exam: Present: normal inspection Throat exam: Positive: tonsillar erythema (bilateral ), tonsillomegaly (bilateral 2+; uvula is midline ). Negative: R peritonsillar mass, L peritonsillar mass - Neck Neck exam: Present: lymphadenopathy (tender mild anterior cervical ) - Respiratory Respiratory exam: Present: normal lung sounds bilaterally. Absent: respiratory distress - Cardiovascular Cardiovascular Exam: Present: regular rate, normal rhythm - Neurological Exam Neurological exam: Present: alert, oriented X3 - Psychiatric Psychiatric exam: Present: normal affect, normal mood - Skin Skin exam: Present: warm, dry, intact, normal color. Absent: rash ED Course Vital Signs 05/30/20 09:07 Temperature 98.3 F Pulse Rate 83 Respiratory 16 Rate Blood Pressure 121/72 O2 Sat by Pulse 96 Oximetry ED Medical Decision Making - Medical Decision Making 20-year-old -[place] female patient presents with complaints of sore throat x4 days. She states pain worsens with swallowing and rates her pain as a 10/10 in severity. She denies any drooling, difficulty opening her jaw, fever/chills/sweats, chest pain, cough, shortness of breath, or rash. Patient states she has been taking OTC cold medication and it is not helping with her symptoms. We will treat for strep pharyngitis with Amoxil. Patient to follow-up with her primary care doctor in 3 to 5 days. Her vitals are normal, she is nontoxic- appearing, and she is stable for discharge home. Discussed signs and symptoms that should prompt immediate return to the emergency department in detail with patient who verbalized understanding. Critical care attestation.: If time is entered above; I have spent that time in minutes in the direct care of this critically ill patient, excluding procedure time. ED Disposition Clinical Impression: Strep pharyngitis Disposition: DC-01 TO HOME OR SELFCARE Is pt being admited?: No Condition: Stable Instructions: Strep Throat, Adult Prescriptions: Ibuprofen [Motrin 800 MG tab] 800 mg PO Q8HR PRN #15 tablet PRN Reason: pain Amoxicillin [Trimox CAP] 500 mg PO BID 10 Days #20 capsule Referrals: [facility] [Provider Group] - 3-5 Days
== END 2020-05-30 09:43 | disposition home or self-care (01) ==
LOC: ED 08:58
DX: J02.0 Streptococcal pharyngitis (principal); F17.200 Nicotine dependence, unspecified, uncomplicated; F12.90 Cannabis use, unspecified, uncomplicated; Z79.899 Other long term (current) drug therapy
CPT/HCPCS: 99282